=== PATIENT | male | born 1985 | race Caucasian/White ===

== ENCOUNTER 2016-12-25 15:50 | Outpatient (CLI) | payer MEDICAID ==
[2016-12-28 22:57] LABS: AMPHETAMINES NEGATIVE ng/mL (< 500); BARBITURATES NEGATIVE ng/mL (< 300); BENZODIAZEPINES NEGATIVE ng/mL (< 100); CREATININE 213.7 mg/dL (>= 20.0); MARIJUANA METABOLITE POSITIVE ng/mL (< 20); MARIJUANA METABOLITE THC 112 ng/mL (< 5); MEDMATCH AMPHETAMINES CONSISTENT (-); MEDMATCH BARBITURATES CONSISTENT (-); MEDMATCH BENZODIAZEPINES CONSISTENT (-); MEDMATCH COCAINE METAB CONSISTENT (-); MEDMATCH MARIJUANA METAB THC INCONSISTENT (-); MEDMATCH METHADONE METAB CONSISTENT (-); MEDMATCH OPIATES CONSISTENT (-); MEDMATCH OXYCODONE CONSISTENT (-); MEDMATCH PHENCYCLIDINE CONSISTENT (-); METHADONE METABOLITE NEGATIVE ng/mL (< 100); OPIATES NEGATIVE ng/mL (< 100); OXIDANT Negative mcg/mL (< 200); PHENCYCLIDINE NEGATIVE ng/mL (< 25)
== END 2016-12-25 15:51 | disposition home or self-care (01) ==
LOC: LAB.R 15:50
PROVIDERS: ATTEND Nurse Practitioner Family
DX: Z79.899 Other long term (current) drug therapy (principal)
CPT/HCPCS: 80307

== ENCOUNTER 2016-12-28 07:28 | Outpatient (CLI) | payer MEDICAID ==
[2016-12-28 12:11] LABS: BUN - BLOOD UREA NITROGEN 18 mg/dL (6-20); CALCIUM 9.5 mg/dL (8.5-10.3); CARBON DIOXIDE - CO2 24 mmol/L (21-32); CHLORIDE 104 mmol/L (101-111); CREATININE 0.9 mg/dL (0.6-1.2); GFR - MDRD 98 (>89); GLUCOSE 99 mg/dL (70-100); POTASSIUM 3.6 mmol/L (3.5-5.0); SODIUM 139 mmol/L (135-145)
[2016-12-28 12:35] LABS: HEMOGLOBIN A1C 0.65 g/dL
== END 2016-12-28 07:29 | disposition home or self-care (01) ==
LOC: LAB.F 07:28
PROVIDERS: ATTEND Nurse Practitioner Family
DX: R73.09 Other abnormal glucose (principal); E03.9 Hypothyroidism, unspecified
CPT/HCPCS: 36415; 80048; 83036; 84443

== ENCOUNTER 2017-02-16 04:20 | Outpatient (CLI) | payer MEDICAID | END 2017-02-16 04:21 | disposition critical access hospital (66) | LOC: EMS 04:20 | PROVIDERS: ATTEND Surgery | DX: R07.9 Chest pain, unspecified (principal) | CPT/HCPCS: A0425; A0427 ==

== ENCOUNTER 2017-02-16 04:44 | Observation (INO) | payer MEDICAID ==
--- NOTE | 2017-02-16 05:16 | ED Physician Documentation ---
PD HPI CHEST PAIN - Stated complaint Stated Complaint: CHEST PAIN - Chief complaint Chief Complaint: Cardiac - History obtained from History obtained from: Patient, Family, EMS - History of Present Illness Timing - onset: Today Timing - onset during: Rest Timing - duration: Minutes Timing - details: Abrupt onset, Now resolved Quality: Pressure, Sharp Location: Substernal, Right chest Improved by: Nitro Associated symptoms: Diaphoresis, Feeling faint / dizzy. No: Shortness of air, Nausea, Vomiting Similar symptoms before: Has not had sx before Recently seen: Not recently seen - Additional information Additional information: Patient is a 31 year old male with a history of tbi and hypothyroid who is presenting to the emergency department for chest pain. According to patient and family patient woke up from sleep with substernal chest pain with radiation to the right chest. Patient took his aspirin and called ems. When ems arrived they treated the patient with nitro which relieved the pain. patient had a second episode of chest pain and a second round of nitro which helped the pain. when patient arrived to the emergency department he was chest pain free. patient stated that his maternal uncle and grandfather both had heart attacks in their 40s. Review of Systems Constitutional: denies: Fever, Chills Eyes: denies: Decreased vision, Photophobia Ears: denies: Ear pain, Drainage/discharge Nose: denies: Congestion Throat: denies: Dental pain / toothache, Sore throat Cardiac: reports: Chest pain / pressure. denies: Palpitations, Calf pain Respiratory: denies: Dyspnea, Cough, Wheezing GI: reports: Nausea. denies: Vomiting : reports: Reviewed and negative Skin: reports: Other (diaphoresis) Musculoskeletal: denies: Neck pain, Back pain, Extremity pain Neurologic: denies: Generalized weakness, Focal weakness, Numbness Immunocompromised: denies: Immunocompromised PD PAST MEDICAL HISTORY - Present Medications Home Medications: Ambulatory Orders Medication Instructions Recorded Confirmed Dextroamphetamine/Amphetamine 1 tab PO DAILY 02/16/17 02/16/17 [Adderall Xr 30 mg Capsule] Levothyroxine [Synthroid] 50 mcg PO DAILY 02/16/17 02/16/17 hydrOXYzine pamoate [Hydroxyzine 1 tab PO QID PRN 02/16/17 02/16/17 Pamoate] - Allergies Allergies/Adverse Reactions: Allergies Allergy/AdvReac Type Severity Reaction Status Date / Time No Known Drug Allergies Allergy Verified 02/16/17 04:50 PD ED PE NORMAL - Vitals Vital signs reviewed: Yes - General General: Alert and oriented X 3, No acute distress - HEENT HEENT: Atraumatic - Neck Neck: Supple, no meningeal sign, No JVD - Cardiac Cardiac: No murmur - Respiratory Respiratory: No respiratory distress - Abdomen Abdomen: Soft, Non tender, Non distended - Derm Derm: Normal color, No rash - Extremities Extremities: No deformity, Normal ROM s pain, No calf tenderness / cord - Neuro Neuro: Alert and oriented X 3, No motor deficit, No sensory deficit, Normal speech Eye Opening: Spontaneous Motor: Obeys Commands Verbal: Oriented GCS Score: 15 PD ED PE EXPANDED - Cardiac Cardiac: Tachy Results - Vitals Vitals: Vital Signs - 24 hr 02/16/17 02/16/17 02/16/17 04:45 04:53 05:38 Temperature 36.3 C L Heart Rate 100 95 106 H Respiratory 18 18 18 Rate Blood Pressure 120/68 116/69 111/72 O2 Saturation 98 96 97 02/16/17 02/16/17 06:14 06:45 Temperature 36.4 C L Heart Rate 101 H 97 Respiratory 14 18 Rate Blood Pressure 101/74 110/83 H O2 Saturation 97 97 Oxygen O2 Source Room air - EKG (time done) 0454 Rate: Rate (enter#) (95) Watson: Normal Ischemia: ST elevation c/w ischemia, Other (2mm elevation in v2, 1 mm in v3) Compare to prior EKG: Old EKG unavailable Computer interpretation: Agree with computer 0538 Rate: Rate (enter#) (95) Ischemia: ST elevation c/w ischemia Compare to prior EKG: Unchanged from prior EKG - Labs Labs: Laboratory Tests 02/16/17 02/16/17 02/16/17 05:15 05:15 05:15 WBC 9.5 RBC 5.01 Hgb 14.8 Hct 44.5 MCV 88.8 MCH 29.6 MCHC 33.4 RDW 12.8 Plt Count 340 MPV 8.4 Neut # 7.7 H Lymph # 1.1 L Adams # 0.6 Eos # 0.1 Baso # 0.1 Absolute Nucleated RBC 0.00 Nucleated RBC % 0.0 D-Dimer < 200.0 L Sodium 140 Potassium 3.7 Chloride 106 Carbon Dioxide 24 Anion Gap 10.0 BUN 19 Creatinine 0.8 Estimated GFR (MDRD) 112 Glucose 135 H Calcium 9.2 Total Bilirubin 0.5 AST 44 H ALT 89 H Alkaline Phosphatase 62 Troponin I Total Protein 7.7 Albumin 4.3 Globulin 3.4 Albumin/Globulin Ratio 1.3 Lipase 32 TSH 02/16/17 02/16/17 02/16/17 05:15 05:15 06:43 WBC RBC Hgb Hct MCV MCH MCHC RDW Plt Count MPV Neut # Lymph # Adams # Eos # Baso # Absolute Nucleated RBC Nucleated RBC % D-Dimer Sodium Potassium Chloride Carbon Dioxide Anion Gap BUN Creatinine Estimated GFR (MDRD) Glucose Calcium Total Bilirubin AST ALT Alkaline Phosphatase Troponin I < 0.04 < 0.04 Total Protein Albumin Globulin Albumin/Globulin Ratio Lipase TSH 1.50 - Rads (name of study) chest x-ray Radiology: Final report received (no acute abnormality) PD MEDICAL DECISION MAKING - ED course Complexity details: reviewed old records, reviewed results, re-evaluated patient , considered differential, d/w patient, d/w change management consultant ED course: Patient was seen and examined at bedside. Iv access was gained and labs were drawn. ekg was performed and did show elevation in V2 and V3. while there was elevation it did not meet stemi criteria. [facility] emergency room was contacted and the case was discussed with the ER attending who agreed that the ekg was abnormal but it did not meet stemi criteria, especially since patient was chest pain free. Multiple hospitals (7)within a two hour radius were contacted but there were no telemetry beds available. Case was discussed with hospitalist who agreed to serial troponins and observation. second troponin in the emergency department remained negative and patient remained chest pain free. Patient was placed in observation for further care. Departure - Departure Disposition: ED Place in Observation Clinical Impression: Chest pain Condition: Stable
--- NOTE | 2017-02-16 05:22 | XRAY Preliminary Report ---
Exam: XR CHEST 1 VIEW X-RAY IMPRESSION: Negative single view chest. [facility] SITE ID: [id number]
[2017-02-16 05:26] LABS: BASOPHILS # (AUTO) 0.1 10^3/uL (0.0-0.1); BASOPHILS % (AUTO) 0.9 %; EOSINOPHILS # (AUTO) 0.1 10^3/uL (0.0-0.7); EOSINOPHILS % (AUTO) 1.2 %; HGB - HEMOGLOBIN 14.8 g/dL (14.0-18.0); LYMPHOCYTES # (AUTO) 1.1 10^3/uL (1.5-3.5); LYMPHOCYTES % (AUTO) 11.3 %; MEAN CORPUSCULAR HEMOGLOBIN 29.6 pg (27.0-31.0); MEAN CORPUSCULAR HGB CONC 33.4 g/dL (32.0-36.0); MEAN CORPUSCULAR VOLUME 88.8 fL (80.0-94.0); MEAN PLATELET VOLUME 8.4 fL (7.4-11.4); MONOCYTES # (AUTO) 0.6 10^3/uL (0.0-1.0); MONOCYTES % (AUTO) 5.8 %; NEUTROPHILS # (AUTO) 7.7 10^3/uL (1.5-6.6); NEUTROPHILS % (AUTO) 80.8 %; PLT - PLATELET COUNT 340 10^3/uL (130-450); RED BLOOD COUNT 5.01 10^6/uL (4.70-6.10); RED CELL DISTRIBUTION WIDTH 12.8 % (12.0-15.0); WHITE BLOOD COUNT 9.5 x10^3/uL (4.8-10.8)
--- NOTE | 2017-02-16 05:30 | XRAY Report ---
EXAM: CHEST RADIOGRAPHY EXAM DATE: 02/16/2017 05:13 AM. CLINICAL HISTORY: Chest pain. COMPARISON: 04/15/2007 shoulder. TECHNIQUE: 1 view. FINDINGS: Lungs/Pleura: No focal opacities evident. No pleural effusion. No pneumothorax. Mediastinum: Within exam limitations, the cardiomediastinal contour is normal. Other: Probable old left coracoclavicular injury with calcification of the ligament. Similar subtle s houlder x-ray. IMPRESSION: Negative single view chest. [facility] Referring Provider Line: [phone] SITE ID: [id number]
[2017-02-16 05:34] LABS: ALBUMIN 4.3 g/dL (3.2-5.5); ALBUMIN/GLOBULIN RATIO 1.3 (1.0-2.2); BILIRUBIN,TOTAL 0.5 mg/dL (0.2-1.0); CALCIUM 9.2 mg/dL (8.5-10.3); CREATININE 0.8 mg/dL (0.6-1.2); TOTAL PROTEIN 7.7 g/dL (6.7-8.2)
[2017-02-16] MEDS ORDERED: SODIUM CHLORIDE 0.9% 1,000 ML IV ONE (06:57)
[2017-02-16] MEDS ORDERED: SODIUM CHLORIDE FLUSH 0.9% 10 ML SYRINGE IVP PRN (07:47)
[2017-02-16] MEDS ORDERED: ONDANSETRON 4 MG/2 ML VIAL IVP PRN (07:47)
[2017-02-16] MEDS ORDERED: hydrOXYzine PAMOATE 25 MG CAPSULE PO PRN (07:47)
[2017-02-16] MEDS ORDERED: MORPHINE 2 MG/ML SYRINGE IVP PRN (07:47)
[2017-02-16] MEDS ORDERED: NITROGLYCERIN SL 0.4 MG TABLET SL PRN (07:47)
[2017-02-16] MEDS ORDERED: PROCHLORPERAZINE 10 MG/2 ML VIAL IVP PRN (07:47)
[2017-02-16] MEDS ORDERED: oxyCODONE 5 MG TABLET PO PRN ×2 (07:47)
[2017-02-16] MEDS ORDERED: ACETAMINOPHEN 325 MG TABLET PO PRN (07:47)
[2017-02-16] MEDS ORDERED: ZOLPIDEM 5 MG TABLET PO PRN (07:47)
[2017-02-16] MEDS ORDERED: PROMETHAZINE 25 MG/1 ML VIAL IM PRN (07:47)
[2017-02-16] MEDS ORDERED: ASPIRIN CHEW 81 MG TABLET PO ONE (09:00)
[2017-02-16] MEDS ORDERED: FAMOTIDINE 20 MG TABLET PO SCH (09:00)
[2017-02-16] MEDS ORDERED: LEVOTHYROXINE 25 MCG TABLET PO SCH (09:00)
[2017-02-16] MEDS ORDERED: SODIUM CHLORIDE FLUSH 0.9% 10 ML SYRINGE IVP ONE (11:37)
[2017-02-16] MEDS ORDERED: SODIUM CHLORIDE FLUSH 0.9% 10 ML SYRINGE IVP SCH (14:00)
--- NOTE | 2017-02-16 14:56 | Discharge Plan ---
Discharge Plan Disposition: 01 Home, Self Care Condition: Stable Prescriptions: Aspirin 325 mg PO DAILY #30 tablet Diet: Regular Activity Restrictions: Activity as Tolerated Shower Restrictions: No Driving Restrictions: No Weight Bearing: Full Weight Additional Instructions or Follow Up instructions: You presented to the emergency department with chest pain. After checking blood tests and doing echocardiogram it was determined that you were not having an acute heart attack. Your pain is still concerning enough that we would like you to get a stress test with your primary care physician. Please follow-up with your primary care physician as soon as possible to get a stress test. You did have some abnormal findings on her EKG however these were discussed with cardiology at [facility] in [place] and they felt that these were nonspecific changes. He did not have any abnormal findings on your echocardiogram but do need to make lifestyle changes including exercising and improved diet to help reduce risk factors for cardiac problems in the future. No Smoking: If you smoke, Please STOP! Call for help. Follow-up with: Belinda Mirza ARNP [Primary Care Provider] -
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
[2017-02-16 15:42] VITALS: BP 104/57
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
[2017-02-16] MEDS ORDERED: ATORVASTATIN 40 MG TABLET PO SCH (21:00)
[2017-02-17] MEDS ORDERED: ENOXAPARIN 40 MG/0.4 ML SYRINGE SUBQ SCH (09:00)
[2017-02-17] MEDS ORDERED: POLYETHYLENE GLYCOL 3350 17 GM PACKET PO SCH (09:00)
[2017-02-17] MEDS ORDERED: ASPIRIN EC 81 MG TABLET PO SCH (09:00)
== END 2017-02-16 16:15 | disposition home or self-care (01) ==
LOC: EDUNIT# → ED 04:44 → SUPCPDRO 04:44 → OBS 07:47
PROVIDERS: ADMIT Internal Medicine; ATTEND Internal Medicine
DX: R07.89 Other chest pain (principal); E66.9 Obesity, unspecified; E03.9 Hypothyroidism, unspecified; R73.03 Prediabetes; R74.8 Abnormal levels of other serum enzymes; I51.7 Cardiomegaly; F41.9 Anxiety disorder, unspecified; F90.9 Attention-deficit hyperactivity disorder, unspecified type; Z87.820 Personal history of traumatic brain injury; Z82.49 Family history of ischemic heart disease and other diseases of the circulatory system; Z68.37 Body mass index [BMI] 37.0-37.9, adult; Z87.81 Personal history of (healed) traumatic fracture
CPT/HCPCS: 71045; 80053; 83690; 84443; 84484; 85025; 85379; 93005; 93306; 96360; 96361; 99284; 99285; A9270; G0378

== ENCOUNTER 2017-02-21 08:11 | Outpatient (CLI) | payer MEDICAID ==
[2017-02-21 10:30] LABS: CHOL/HDL RATIO 4.4 (<5.0); CHOLESTEROL 158 mg/dL; HDL CHOLESTEROL 36 mg/dL; LDL CHOLESTEROL,CALCULATED 101 mg/dL; LDL/HDL RATIO 2.8 (<3.6); VLDL CHOLESTEROL 21 mg/dL
[2017-02-21 10:40] LABS: THYROID STIMULATING HORMONE 1.54 uIU/mL (0.34-5.60)
[2017-02-21 10:41] LABS: FREE T4 (FREE THYROXINE) 1.24 ng/dL (0.58-1.64)
--- NOTE | 2017-02-21 11:51 | CARDIAC PROCEDURE NOTE ---
DATE OF SERVICE: 02/21/2017 Physician: KIMBERLY Escobedo DATE OF SERVICE: 02/21/2017 PRIMARY CARE PHYSICIAN: KIMBERLY Connors PROCEDURE: Cardiac treadmill stress test. PROCEDURE SYMPTOMS: Chest pain. CARDIAC RISK FACTORS: Include early family history. PREVIOUS CARDIAC PROCEDURES: None. CLINICAL HISTORY: A 31-year-old male without known coronary artery disease. INITIAL RESTING VITAL SIGNS: Blood pressure 106/64, heart rate 93, height 68 inches, weight 248 pounds, BMI 37.7. PROCEDURE AND FINDINGS: Patient identity and date verified, consent signed. The patient performed treadmill exercise using a Laurent protocol, completing 7 minutes, 23 seconds and completing an estimated workload of 10.1 metabolic equivalents. Maximal blood pressure was 142/86 with a heart rate of 185 beats per minute or 98% of maximum predicted heart rate for age. The blood pressure response to exercise was within normal limits. The patient stopped because his legs were burning and he was short of air. The resting ECG demonstrated normal sinus rhythm, with inverted T waves in the inferior leads and ST abnormality that was elevated with no defined J point in V2. There was no ST elevation in V3 as there was in his ER ECG. Maximum ST segment depression was 0. There was no ectopy. He had a very slow decrease in heart rate and respiratory rate in recovery. At 10 minutes, his heart rate was still 120. FINAL IMPRESSIONS 1. Nondiagnostic stress electrocardiogram for ischemia by electrocardiographic criteria. 2. Negative stress test clinically for angina. 3. Slow heart rate recovery over 10 minutes. TD: 02/21/2017 12:49
== END 2017-02-21 08:12 | disposition home or self-care (01) ==
LOC: LAB.F 08:11
PROVIDERS: ATTEND Nurse Practitioner Family
DX: R07.89 Other chest pain (principal); Z82.49 Family history of ischemic heart disease and other diseases of the circulatory system; Z13.220 Encounter for screening for lipoid disorders; E03.9 Hypothyroidism, unspecified
CPT/HCPCS: 36415; 80061; 84439; 84443

== ENCOUNTER 2017-02-21 09:46 | Outpatient (CLI) | payer MEDICAID ==
[2017-02-21 17:12] VITALS: BP 106/64
== END 2017-02-21 09:47 | disposition home or self-care (01) ==
LOC: DI 09:46
PROVIDERS: ATTEND Nurse Practitioner Family
DX: R07.89 Other chest pain (principal); Z82.49 Family history of ischemic heart disease and other diseases of the circulatory system; Z13.220 Encounter for screening for lipoid disorders; E03.9 Hypothyroidism, unspecified
CPT/HCPCS: 36415; 80061; 84439; 84443; 93017

== ENCOUNTER 2017-06-04 14:13 | Outpatient (CLI) | payer MEDICAID | END 2017-06-04 14:14 | disposition home or self-care (01) | LOC: SC 14:13 | PROVIDERS: ATTEND Internal Medicine Pulmonary Disease | DX: G47.10 Hypersomnia, unspecified (principal); G47.20 Circadian rhythm sleep disorder, unspecified type | CPT/HCPCS: 99203; 99212 ==

== ENCOUNTER 2017-07-17 00:15 | Outpatient (CLI) | payer MEDICAID | END 2017-07-17 00:16 | disposition critical access hospital (66) | LOC: EMS 00:15 | PROVIDERS: ATTEND Surgery | DX: R07.9 Chest pain, unspecified (principal); R06.02 Shortness of breath | CPT/HCPCS: A0425; A0427 ==

== ENCOUNTER 2017-07-17 00:42 | Emergency (ER) | payer MEDICAID ==
[2017-07-17] MEDS ORDERED: ONDANSETRON ODT 4 MG TABLET TL STA (00:59)
[2017-07-17] MEDS ORDERED: FAMOTIDINE 20 MG TABLET PO STA (00:59)
[2017-07-17] MEDS ORDERED: LIDOCAINE VISCOUS 2% 15 ML UDC MM STA (00:59)
[2017-07-17] MEDS ORDERED: MAG HYDROX/AL HYDROX/SIMETH 30 ML UDC PO STA (00:59)
[2017-07-17 01:11] LABS: BASOPHILS # (AUTO) 0.1 10^3/uL (0.0-0.1); BASOPHILS % (AUTO) 0.9 %; EOSINOPHILS # (AUTO) 0.2 10^3/uL (0.0-0.7); EOSINOPHILS % (AUTO) 2.1 %; LYMPHOCYTES # (AUTO) 2.4 10^3/uL (1.5-3.5); LYMPHOCYTES % (AUTO) 21.4 %; MEAN CORPUSCULAR HEMOGLOBIN 30.3 pg (27.0-31.0); MEAN CORPUSCULAR VOLUME 88.9 fL (80.0-94.0); MEAN PLATELET VOLUME 8.5 fL (7.4-11.4); MONOCYTES # (AUTO) 0.6 10^3/uL (0.0-1.0); MONOCYTES % (AUTO) 5.1 %; NEUTROPHILS # (AUTO) 7.8 10^3/uL (1.5-6.6); NEUTROPHILS % (AUTO) 70.5 %; PLT - PLATELET COUNT 329 10^3/uL (130-450); RED BLOOD COUNT 4.64 10^6/uL (4.70-6.10); RED CELL DISTRIBUTION WIDTH 12.9 % (12.0-15.0)
[2017-07-17 01:26] LABS: ALBUMIN 3.9 g/dL (3.2-5.5); ALBUMIN/GLOBULIN RATIO 1.1 (1.0-2.2); BILIRUBIN,TOTAL 0.8 mg/dL (0.2-1.0); CALCIUM 9.3 mg/dL (8.5-10.3); CREATININE 0.9 mg/dL (0.6-1.2); TOTAL PROTEIN 7.3 g/dL (6.7-8.2)
--- NOTE | 2017-07-17 01:30 | XRAY Report ---
EXAM: CHEST RADIOGRAPHY EXAM DATE: 07/17/2017 01:18 AM. CLINICAL HISTORY: Chest pain. COMPARISON: 02/16/2017. TECHNIQUE: 2 views. FINDINGS: Lungs/Pleura: No focal opacities evident. No pleural effusion. No pneumothorax. Normal volumes. Mediastinum: Heart and mediastinal contours are unremarkable. Other: None. IMPRESSION: Normal 2-view chest radiography. [facility] Referring Provider Line: [phone] SITE ID: [id number]
--- NOTE | 2017-07-17 01:30 | XRAY Preliminary Report ---
Exam: XR CHEST 2 VIEW X-RAY IMPRESSION: Normal 2-view chest radiography. [facility] SITE ID: [id number]
--- NOTE | 2017-07-17 01:35 | ED Physician Documentation ---
PD HPI CHEST PAIN - Stated complaint Stated Complaint: CHEST PAIN - Chief complaint Chief Complaint: Cardiac - History obtained from History obtained from: Patient, EMS - History of Present Illness Timing - onset: Today Timing - onset during: Rest Timing - details: Abrupt onset, Still present Quality: Pressure, Aching, Throbbing Location: Right chest Associated symptoms: Nausea. No: Shortness of air, Diaphoresis, Vomiting, Feeling faint / dizzy Similar symptoms before: Work up / diagnostics Recently seen: Not recently seen - Additional information Additional information: Patient is a 31 year old male presenting to the emergency department for chest pain. According to patient, family and ems, patient complained of severe epigastric pain that radiated to his back. Patient states that he did have chicken wings for lunch and muffin tops for dinner. Patient reports that he was diagnosed with angina but he had a negative stress test and echo in february. Review of Systems Constitutional: denies: Fever, Chills Cardiac: reports: Chest pain / pressure. denies: Palpitations Respiratory: denies: Dyspnea, Cough GI: reports: Abdominal Pain, Nausea. denies: Vomiting, Constipation, Diarrhea Skin: denies: Rash, Lesions PD PAST MEDICAL HISTORY - Past Medical History Past Medical History: Yes Respiratory: Asthma Endocrine/Autoimmune: HyPOthyroidism Other Past Medical History: Dx w/ Angina the last time he was here. - Past Surgical History Past Surgical History: Yes Cardiovascular: Other HEENT: Other - Present Medications Home Medications: Ambulatory Orders Medication Instructions Recorded Confirmed Aspirin 325 mg PO DAILY #30 tablet 02/16/17 Dextroamphetamine/Amphetamine 1 cap PO DAILY 02/16/17 02/16/17 [Adderall Xr 30 mg Capsule] Levothyroxine [Synthroid] 50 mcg PO DAILY 02/16/17 02/16/17 hydrOXYzine pamoate [Hydroxyzine 25 - 50 mg PO Q4H PRN 02/16/17 02/16/17 Pamoate] Doxycycline Monohydrate 1 cap PO BID 07/17/17 07/17/17 Ondansetron Odt [Zofran] 4 mg TL Q6H PRN #14 tablet 07/17/17 - Allergies Allergies/Adverse Reactions: Allergies Allergy/AdvReac Type Severity Reaction Status Date / Time No Known Drug Allergies Allergy Verified 07/17/17 00:52 - Social History Does the pt smoke?: No Smoking Status: Never smoker Does the pt drink ETOH?: Yes Does the pt have substance abuse?: No - POLST Patient has POLST: No POLST Status: Full Code PD ED PE NORMAL - Vitals Vital signs reviewed: Yes - General General: Alert and oriented X 3 - HEENT HEENT: Atraumatic - Cardiac Cardiac: RRR - Respiratory Respiratory: No respiratory distress - Derm Derm: Normal color - Extremities Extremities: No deformity - Neuro Neuro: Alert and oriented X 3, No motor deficit, Normal speech Eye Opening: Spontaneous Motor: Obeys Commands Verbal: Oriented GCS Score: 15 PD ED PE EXPANDED - General General: Alert, In Pain - HEENT HEENT: Dry mucous membranes - Abdomen Abdomen: Tender to palpation, Epigastric. No: Rebound, Guarding Results - Vitals Vitals: Vital Signs - 24 hr 07/17/17 07/17/17 07/17/17 00:44 00:50 01:19 Temperature 36.3 C L Heart Rate 81 81 Respiratory 21 23 Rate Blood Pressure 99/67 121/78 Blood Pressure 99/67 [Left] Blood Pressure 116/80 [Right] O2 Saturation 98 96 07/17/17 01:55 Temperature Heart Rate 79 Respiratory 16 Rate Blood Pressure 119/78 Blood Pressure [Left] Blood Pressure [Right] O2 Saturation 100 Oxygen O2 Source Room air - EKG (time done) 0047 Rate: Rate (enter#) (73) Rhythm: NSR [place]: Normal Intervals: Normal [place] Ischemia: ST elevation c/w repol Compare to prior EKG: Unchanged from prior EKG - Labs Labs: Laboratory Tests 07/17/17 07/17/17 07/17/17 01:00 01:00 01:00 WBC 11.0 H RBC 4.64 L Hgb 14.0 Hct 41.3 L MCV 88.9 MCH 30.3 MCHC 34.0 RDW 12.9 Plt Count 329 MPV 8.5 Neut # (Auto) 7.8 H Lymph # (Auto) 2.4 [place] # (Auto) 0.6 Eos # (Auto) 0.2 Baso # (Auto) 0.1 Absolute Nucleated RBC 0.00 Nucleated RBC % 0.0 Sodium 141 Potassium 4.1 Chloride 106 Carbon Dioxide 26 Anion Gap 9.0 BUN 20 Creatinine 0.9 Estimated GFR (MDRD) 98 Glucose 157 H Calcium 9.3 Total Bilirubin 0.8 AST 72 H ALT 85 H Alkaline Phosphatase 63 Troponin I < 0.04 Total Protein 7.3 Albumin 3.9 Globulin 3.4 Albumin/Globulin Ratio 1.1 Lipase 37 - Rads (name of study) ct abd pelvis Radiology: Final report received (normal) PD MEDICAL DECISION MAKING - ED course Complexity details: reviewed old records, reviewed results, re-evaluated patient , considered differential, d/w patient ED course: Patient was seen and examined at bedside. ekg was performed and was within normal limits. patient was treated with pepcid, maalox and viscous lidocaine with little relief. Patient was sent for imaging. When patient returned from imaging the results were reviewed. there were no acute abnormalities. Patient and mother were made aware of the findings. Patient had a heart score of 1, and a negative echo and stress test 5 months prior. patient required no further work up and was stable for discharge with outpatient follow up. Departure - Departure Disposition: Home, Self Care Clinical Impression: Elevated LFTs, Abdominal pain Condition: Good Instructions: ED Abdominal Pain Gallstone Poss Follow-Up: Ricky Marie MD [Provider Admit Priv/Credential] - Tomorrow Prescriptions: Ondansetron Odt [Zofran] 4 mg TL Q6H PRN #14 tablet PRN Reason: Nausea / Vomiting Comments: Your diagnostics today were within normal limits. there were no acute abnormalities. There is a good possibility that it is your gallbladder. The first step is to change your diet. You will need to cut out all fried foods, fatty foods, fast foods etc. You can increase the amounts of vegetables and lean protein. You should follow up with Dr. Best's office for further care if your symptoms persist. you may return to the emergency department at any time for new, worsening or uncontrollable symptoms.
[2017-07-17] MEDS ORDERED: IOPAMIDOL-300 100 ML VIAL ONE (01:55)
[2017-07-17] MEDS ORDERED: IOPAMIDOL-300 100 ML VIAL IVP ONE (02:11)
--- NOTE | 2017-07-17 02:30 | CT Preliminary Report ---
Exam: CT ABDOMEN/PELVIS W/ IMPRESSION: Normal abdomen and pelvis CT. [facility] SITE ID: [id number]
--- NOTE | 2017-07-17 02:30 | CT Report ---
EXAM: CT ABDOMEN AND PELVIS EXAM DATE: 07/17/2017 02:14 AM. CLINICAL HISTORY: Abd pain, transaminitis. COMPARISONS: None. TECHNIQUE: Routine helical CT imaging was performed through the abdomen and pelvis. IV contrast: 100 mL Isovue 300. Enteric contrast: No. Reconstructions: Coronal and sagittal. In accordance with CT protocol optimization, one or more of the following dose reduction techniques w ere utilized for this exam: automated exposure control, adjustment of mA and/or KV based on patient s ize, or use of iterative reconstructive technique. FINDINGS: Lung Bases: Unremarkable. Liver: Normal. No masses. Gallbladder/Bile Ducts: Unremarkable. Spleen: Normal. Pancreas: Normal. Adrenal Glands: Normal. Kidneys: Normal. No masses or hydronephrosis. Peritoneal Cavity/Bowel: Normal. No free fluid, free air or adenopathy. No masses or acute inflammato ry process. The appendix is well visualized and normal. Pelvic Organs: Normal. The bladder and visualized pelvic organs are within normal limits. Vasculature: No aneurysms or other significant abnormality. Bones: No significant abnormality. Other: None. IMPRESSION: Normal abdomen and pelvis CT. [facility] Referring Provider Line: [phone] SITE ID: [id number]
[2017-07-17 03:00] VITALS: BP 117/83
== END 2017-07-17 03:00 | disposition home or self-care (01) ==
LOC: EDUNIT# → SUPCPDRO 00:42 → ED 00:42
DX: R94.5 Abnormal results of liver function studies (principal); R10.13 Epigastric pain; E03.9 Hypothyroidism, unspecified
CPT/HCPCS: 36415; 71046; 74177; 80053; 83690; 84484; 85025; 93005; 99283; 99284; A9270; Q0162; Q9967; 85379

== ENCOUNTER 2017-07-31 18:58 | Outpatient (CLI) | payer MEDICAID | END 2017-07-31 18:59 | disposition home or self-care (01) | LOC: SC 18:58 | PROVIDERS: ATTEND Internal Medicine Pulmonary Disease | DX: G47.10 Hypersomnia, unspecified (principal) | CPT/HCPCS: 95810 ==

== ENCOUNTER 2017-09-09 14:51 | Outpatient (CLI) | payer MEDICAID | END 2017-09-09 14:52 | disposition home or self-care (01) | LOC: SC 14:51 | PROVIDERS: ATTEND Internal Medicine Pulmonary Disease | DX: G47.20 Circadian rhythm sleep disorder, unspecified type (principal) | CPT/HCPCS: 99212; 99213 ==

== ENCOUNTER 2017-12-16 14:45 | Outpatient (CLI) | payer MEDICAID ==
[2017-12-16 19:26] LABS: MUDS CUTOFF CONCENTRATIONS CUTOFF CONC BELOW:
[2017-12-16 19:43] LABS: AMPHETAMINE SCREEN,URINE POSITIVE (NEGATIVE); BENZODIAZEPINES SCREEN, URINE NEGATIVE (NEGATIVE); COCAINE SCREEN URINE NEGATIVE (NEGATIVE); METHADONE SCREEN, URINE NEGATIVE (NEGATIVE); METHAMPHETAMINES SCREEN, URINE NEGATIVE (NEGATIVE); OPIATE SCREEN, URINE NEGATIVE (NEGATIVE); OXYCODONE SCREEN, URINE NEGATIVE (NEGATIVE); PROPOXYPHENE SCREEN, URINE NEGATIVE (NEGATIVE); TRICYCLIC ANTIDEPRESSANT,URINE NEGATIVE (NEGATIVE)
== END 2017-12-16 23:59 ==
LOC: LAB.R 14:45
PROVIDERS: ATTEND Nurse Practitioner Family
DX: F90.0 Attention-deficit hyperactivity disorder, predominantly inattentive type (principal)
CPT/HCPCS: 80306

== ENCOUNTER 2018-01-24 16:11 | Outpatient (CLI) | payer MEDICAID ==
--- NOTE | 2018-01-25 17:50 | Ultrasound Report ---
Reason: BILIARY COLIC Procedure Date: 01/24/2018 Accession Number: [id number] / [id number] Procedure: US - Abdomen Limited CPT Code: FULL RESULT: EXAM: ABDOMEN ULTRASOUND LIMITED, RUQ EXAM DATE: 01/24/2018 05:31 PM. CLINICAL HISTORY: BILIARY COLIC. COMPARISON: ABDOMEN/PELVIS W/ 07/17/2017 2:02 AM. TECHNIQUE: Real-time scanning was performed with static images obtained. FINDINGS: Liver: Echotexture increased without suspicious abnormality seen. Main portal vein flow: Hepatopetal. Gallbladder: Multiple gallstones without wall thickening or reported tenderness. Biliary System: CBD measures 3 mm. No intrahepatic or extrahepatic ductal dilatation. Other: Visualized portions of the right kidney are unremarkable with incidental small right renal cyst again noted. IMPRESSION: 1. Cholelithiasis without definite acute cholecystitis. 2. Fatty liver [facility]
== END 2018-01-24 16:12 | disposition home or self-care (01) ==
LOC: DI 16:11
PROVIDERS: ATTEND Nurse Practitioner Family
DX: K80.20 Calculus of gallbladder without cholecystitis without obstruction (principal); K76.0 Fatty (change of) liver, not elsewhere classified
CPT/HCPCS: 76705

== ENCOUNTER 2018-02-28 08:17 | Outpatient (CLI) | payer MEDICAID ==
[2018-02-28 12:15] LABS: CORTISOL 8.6 ug/dL; FREE T4 (FREE THYROXINE) 0.97 ng/dL (0.58-1.64); PROLACTIN 6.45 ng/mL
[2018-02-28 12:16] LABS: FREE T3 2.93 pg/mL (2.5-3.9); PSA TOTAL 0.59 ng/mL (0.000-2.000)
== END 2018-02-28 08:18 | disposition home or self-care (01) ==
LOC: LAB.F 08:17
PROVIDERS: ATTEND Internal Medicine
DX: E29.1 Testicular hypofunction (principal); E03.9 Hypothyroidism, unspecified
CPT/HCPCS: 36415; 82533; 84146; 84153; 84439; 84443; 84481

== ENCOUNTER 2018-07-10 12:33 | Emergency (ER) | payer MEDICAID ==
--- NOTE | 2018-07-10 13:22 | ED Physician Documentation ---
History of Present Illness - Stated complaint Stated Complaint: SIDE PX - Chief complaint Chief Complaint: General - History obtained from History obtained from: Patient, Family - History of Present Illness Timing: Today Pain level max: >10 Pain level now: >10 - Additonal information Additional information: This is a 32-year-old presents with his mother complaints that he is having pain in his side but also his lower abdomen and his lower back bilaterally. The pain started around 330 this morning and is gradually increased to where it is now a 9 out of 10. Feels like he cannot urinate. He has not seen any blood in the urine. Is been nauseous but had no vomiting or diarrhea. The patient has felt very dizzy he thinks is because he is hyperventilating in an attempt to control his pain. He took 700 mg of aspirin, half of a hydrocodone tablet and a chocolate marijuana bar prior to arrival has not had any relief of the pain. He is never had pain like this before. Patient has been diagnosed with gallstones but denies any abdominal surgeries and still has his gallbladder. There is a family history of gout but no family history of kidney stone. He has not run a fever. Review of Systems Unable to obtain: Other (Acute pain) Constitutional: denies: Fever Respiratory: denies: Dyspnea, Cough GI: reports: Abdominal Pain, Nausea. denies: Vomiting, Diarrhea : reports: Unable to Void. denies: Dysuria, Testicular pain Neurologic: reports: Other (Dizziness) PD PAST MEDICAL HISTORY - Past Medical History Past Medical History: Yes Respiratory: Asthma Endocrine/Autoimmune: HyPOthyroidism GI: Other (Gallstones) - Past Surgical History Past Surgical History: Yes Cardiovascular: Other HEENT: Other - Present Medications Home Medications: Ambulatory Orders Medication Instructions Recorded Confirmed Dextroamphetamine/Amphetamine 1 cap PO DAILY 02/16/17 07/10/18 [Adderall Xr 30 mg Capsule] Levothyroxine [Synthroid] 50 mcg PO DAILY 02/16/17 07/10/18 Doxycycline Monohydrate 1 cap PO BID 07/17/17 07/10/18 - Allergies Allergies/Adverse Reactions: Allergies Allergy/AdvReac Type Severity Reaction Status Date / Time No Known Drug Allergies Allergy Verified 07/10/18 12:52 - Social History Does the pt smoke?: No Smoking Status: Never smoker Does the pt drink ETOH?: Yes Does the pt have substance abuse?: No - POLST Patient has POLST: No POLST Status: Full Code PD ED PE NORMAL - Vitals Vital signs reviewed: Yes - General General: Other (Patient was leaning over the toilet in an attempt to control his pain when I came in the exam room. Is very pale and obviously in discomfort. He is diaphoretic.) - HEENT HEENT: Atraumatic, PERRL, Other (No scleral icterus) - Cardiac Cardiac: No murmur, Other (Tachycardic) - Respiratory Respiratory: No respiratory distress, Clear bilaterally - Abdomen Abdomen: Other (Hypoactive bowel tones. He is diffusely tender with guarding.) - Derm Derm: Other (Diaphoretic;Pale) - Extremities Extremities: No edema - Neuro Neuro: Alert and oriented X 3 - Psych Psych: Normal mood, Normal affect Results - Vitals Vitals: Vital Signs - 24 hr 07/10/18 07/10/18 07/10/18 12:47 15:02 16:31 Temperature 36.3 C L 36.7 C 36.7 C Heart Rate 108 H 97 109 H Respiratory 30 H 16 16 Rate Blood Pressure 122/80 135/78 H 119/84 H O2 Saturation 99 100 98 07/10/18 07/10/18 07/10/18 18:37 19:27 21:09 Temperature 36.5 C 36.6 C Heart Rate 90 101 H 102 H Respiratory 16 18 15 Rate Blood Pressure 146/96 H 143/92 H 133/86 H O2 Saturation 99 99 95 Oxygen O2 Source Room air - Labs Labs: Laboratory Tests 07/10/18 07/10/18 07/10/18 13:05 13:05 13:54 WBC 13.1 H RBC 4.94 Hgb 14.6 Hct 43.9 MCV 88.8 MCH 29.5 MCHC 33.2 RDW 13.1 Plt Count 387 MPV 8.1 Neut # (Auto) 11.8 H Lymph # (Auto) 0.9 L [place] # (Auto) 0.3 Eos # (Auto) 0.0 Baso # (Auto) 0.0 Absolute Nucleated RBC 0.00 Nucleated RBC % 0.0 Sodium 139 Potassium 3.6 Chloride 100 L Carbon Dioxide 20 L Anion Gap 19.0 H BUN 25 H Creatinine 1.2 Estimated GFR (MDRD) 70 L Glucose 151 H Calcium 9.8 Total Bilirubin 0.7 AST 38 ALT 32 Alkaline Phosphatase 57 Total Protein 8.3 H Albumin 4.9 Globulin 3.4 Albumin/Globulin Ratio 1.4 Lipase 33 Urine Color YELLOW Urine Clarity CLEAR Urine pH 6.0 Ur Specific [place] 1.025 Urine Protein TRACE Urine Glucose (UA) NEGATIVE Urine Ketones >=80 H Urine Occult Blood LARGE H Urine Nitrite NEGATIVE Urine Bilirubin NEGATIVE Urine Urobilinogen 0.2 (NORMAL) Ur Leukocyte Esterase NEGATIVE Urine RBC 11-25 H Urine WBC 0-3 Ur Squamous Epith Cells RARE Squamous Urine Bacteria Rare Urine Mucus Few Strands Ur Microscopic Review INDICATED Urine Culture Comments NOT INDICATED Urine Opiates Screen POSITIVE H Ur Oxycodone Screen NEGATIVE Urine Methadone Screen NEGATIVE Ur Propoxyphene Screen NEGATIVE Ur Barbiturates Screen NEGATIVE Ur Tricyclics Screen NEGATIVE Ur Phencyclidine Scrn NEGATIVE Ur Amphetamine Screen POSITIVE H U Methamphetamines Scrn NEGATIVE U Benzodiazepines Scrn NEGATIVE Urine Cocaine Screen NEGATIVE U Cannabinoids Screen POSITIVE H PD MEDICAL DECISION MAKING - ED course Complexity details: re-evaluated patient, d/w patient, d/w family ED course: Patient initially received a liter of IV fluids and Toradol 30 mg IV. He continued to have intense pain and was then given repeated doses of Dilaudid up to 3 mg as well as Zofran a total of 8 mg. His urine had blood in it and a CT confirmed the Presence of a small stone at the UVJ. Patient was given Flomax and during his emergency department stay he had relief of his pain and passed what looked like a little bit of grit into the urine strainer. The abdomen was soft at that time and he was ready to go home. He is encouraged to continue using the urine strainer and follow-up with his primary care provider for further management next week. He states understanding. Departure - Departure Disposition: 01 Home, Self Care Clinical Impression: Renal colic on right side Condition: Good Instructions: ED Stone Renal W Colic Follow-Up: Belinda Mirza ARNP [Primary Care Provider] - Comments: Continue to strain your urine and save any larger stone that is passed. Drink lots of water I would recommend at least eight 10 ounce glasses of water a day.May use ibuprofen [id number] for any residual discomfort. Follow-up with your doctor next week for recheck and to discuss whether any further management of your stones is indicated. Return if you have increasing pain that is not controlled with ibuprofen, you are vomiting, unable to urinate, develop a fever or other problems arise.
[2018-07-10] MEDS ORDERED: ONDANSETRON 4 MG/2 ML VIAL IVP STA ×2 (13:44→20:30)
[2018-07-10] MEDS ORDERED: SODIUM CHLORIDE 0.9% 1,000 ML IV ONE ×2 (13:44→18:33)
[2018-07-10] MEDS ORDERED: KETOROLAC 30 MG/ML VIAL IVP STA (13:44)
[2018-07-10 13:52] LABS: BASOPHILS % (AUTO) 0.3 %; HGB - HEMOGLOBIN 14.6 g/dL (14.0-18.0); LYMPHOCYTES # (AUTO) 0.9 10^3/uL (1.5-3.5); LYMPHOCYTES % (AUTO) 6.7 %; MEAN CORPUSCULAR HEMOGLOBIN 29.5 pg (27.0-31.0); MEAN CORPUSCULAR HGB CONC 33.2 g/dL (32.0-36.0); MEAN CORPUSCULAR VOLUME 88.8 fL (80.0-94.0); MEAN PLATELET VOLUME 8.1 fL (7.4-11.4); MONOCYTES # (AUTO) 0.3 10^3/uL (0.0-1.0); MONOCYTES % (AUTO) 2.5 %; NEUTROPHILS # (AUTO) 11.8 10^3/uL (1.5-6.6); NEUTROPHILS % (AUTO) 90.5 %; PLT - PLATELET COUNT 387 10^3/uL (130-450); RED BLOOD COUNT 4.94 10^6/uL (4.70-6.10); RED CELL DISTRIBUTION WIDTH 13.1 % (12.0-15.0); WHITE BLOOD COUNT 13.1 x10^3/uL (4.8-10.8)
[2018-07-10 13:59] LABS: MUDS CUTOFF CONCENTRATIONS CUTOFF CONC BELOW:
[2018-07-10 14:01] LABS: ALBUMIN 4.9 g/dL (3.2-5.5); ALBUMIN/GLOBULIN RATIO 1.4 (1.0-2.2); BILIRUBIN,TOTAL 0.7 mg/dL (0.2-1.0); CALCIUM 9.8 mg/dL (8.5-10.3); CREATININE 1.2 mg/dL (0.6-1.2); TOTAL PROTEIN 8.3 g/dL (6.7-8.2)
[2018-07-10 14:04] LABS: BILIRUBIN,URINE NEGATIVE (NEGATIVE); GLUCOSE, URINE (UA) NEGATIVE (NEGATIVE); KETONES,URINE (UA) >=80 mg/dL (NEGATIVE); LEUKOCYTE ESTERASE, URINE NEGATIVE (NEGATIVE); NITRITE,URINE NEGATIVE (NEGATIVE); OCCULT BLOOD,URINE LARGE (NEGATIVE); PROTEIN,URINE TRACE mg/dL (NEGATIVE); UROBILINOGEN,URINE 0.2 (NORMAL) E.U./dL (NORMAL)
[2018-07-10 14:16] LABS: CLARITY,URINE CLEAR (CLEAR)
[2018-07-10 14:17] LABS: BACTERIA,URINE Rare /HPF (None Seen); MUCUS,URINE Few Strands; SQUAMOUS EPITHELIAL CELL,UR RARE Squamous (<= Few)
[2018-07-10 14:18] LABS: AMPHETAMINE SCREEN,URINE POSITIVE (NEGATIVE); BENZODIAZEPINES SCREEN, URINE NEGATIVE (NEGATIVE); COCAINE SCREEN URINE NEGATIVE (NEGATIVE); METHADONE SCREEN, URINE NEGATIVE (NEGATIVE); METHAMPHETAMINES SCREEN, URINE NEGATIVE (NEGATIVE); OPIATE SCREEN, URINE POSITIVE (NEGATIVE); OXYCODONE SCREEN, URINE NEGATIVE (NEGATIVE); PROPOXYPHENE SCREEN, URINE NEGATIVE (NEGATIVE); TRICYCLIC ANTIDEPRESSANT,URINE NEGATIVE (NEGATIVE)
[2018-07-10] MEDS ORDERED: HYDROmorphone 1 MG/ML CARPUJECT IVP STA ×3 (15:45→19:42)
--- NOTE | 2018-07-10 17:27 | CT Report ---
Reason: flank pain, hemautria Procedure Date: 07/10/2018 Accession Number: [id number] / [id number] Procedure: CT - Abdomen/Pelvis WO CPT Code: FULL RESULT: EXAM: CT ABDOMEN AND PELVIS (CT KUB) EXAM DATE: 07/10/2018 03:40 PM. CLINICAL HISTORY: Flank pain, hematuria. COMPARISONS: ABDOMEN/PELVIS W/ 07/17/2017 2:02 AM. TECHNIQUE: Routine axial helical CT imaging was performed through the abdomen and pelvis without IV contrast. Reconstructions: Coronal and sagittal. In accordance with CT protocol optimization, one or more of the following dose reduction techniques were utilized for this exam: automated exposure control, adjustment of mA and/or KV based on patient size, or use of iterative reconstructive technique. FINDINGS: Mildly limited evaluation of solid abdominal organs without intravenous contrast. Lung Bases: Unremarkable. Right Kidney/Ureter: There is mild hydronephrosis with minimal perinephric inflammation. There is an obstructing stone at or passing the right ureterovesical junction that measures 3 mm. There are 2 additional punctate 2 mm nonobstructing right renal stones. Left Kidney/Ureter: No stone, hydronephrosis, or hydroureter. No perinephric fat stranding. Other Solid Organs: Noncontrast images of the solid organs are grossly unremarkable. Gallbladder/Bile Ducts: Unremarkable. Peritoneal Cavity: No free fluid, free air or jocelyn adenopathy. No evidence of a bowel obstruction. Pelvic Organs: No bladder wall thickening. Prostate gland is unremarkable. Vasculature: Unremarkable. Other: None. IMPRESSION: Mildly obstructing 3 mm stone at or passing the right ureterovesical junction. Additional 2 mm nonobstructing right renal stones. RADIA
[2018-07-10] MEDS ORDERED: TAMSULOSIN 0.4 MG CAPSULE PO STA (18:33)
[2018-07-10] MEDS ORDERED: ONDANSETRON 4 MG/2 ML VIAL ONE (20:34)
[2018-07-10 21:10] VITALS: BP 133/86
== END 2018-07-10 22:07 | disposition home or self-care (01) ==
LOC: ED 12:33
DX: N13.2 Hydronephrosis with renal and ureteral calculous obstruction (principal)
CPT/HCPCS: 36415; 74176; 80053; 80306; 81001; 83690; 85025; 96361; 96374; 96375; 96376; 99284; A9270; J1170; 81003; 87086

== ENCOUNTER 2018-07-18 14:01 | Outpatient (CLI) | payer MEDICAID ==
[2018-07-18 18:23] LABS: CALCIUM 9.3 mg/dL (8.5-10.3); CREATININE 0.9 mg/dL (0.6-1.2)
== END 2018-07-18 14:02 | disposition home or self-care (01) ==
LOC: LAB.F 14:01
PROVIDERS: ATTEND Nurse Practitioner
DX: Z09 Encounter for follow-up examination after completed treatment for conditions other than malignant neoplasm (principal); Z87.442 Personal history of urinary calculi
CPT/HCPCS: 36415; 80048

== ENCOUNTER 2019-10-25 04:29 | Emergency (ER) | payer MEDICAID ==
--- NOTE | 2019-10-25 04:35 | ED Physician Documentation ---
History of Present Illness - Stated complaint Stated Complaint: AB PX - History obtained from History obtained from: Patient - Additonal information Additional information: The patient is a 34-year-old male who presents with chief complaint of right upper quadrant pain with nausea and vomiting reports he has a history of gallstones denies any dark urine or alex colored stools or fevers denies flank pain or syncope. Review of Systems Constitutional: reports: Reviewed and negative Eyes: reports: Reviewed and negative Ears: reports: Reviewed and negative Nose: reports: Reviewed and negative Throat: reports: Reviewed and negative Cardiac: reports: Reviewed and negative Respiratory: reports: Reviewed and negative GI: reports: Abdominal Pain, Nausea, Vomiting : reports: Reviewed and negative Skin: reports: Reviewed and negative Musculoskeletal: reports: Reviewed and negative Neurologic: reports: Reviewed and negative Psychiatric: reports: Reviewed and negative Endocrine: reports: Reviewed and negative Immunocompromised: reports: Reviewed and negative PD PAST MEDICAL HISTORY - Past Medical History Respiratory: Asthma Endocrine/Autoimmune: HyPOthyroidism GI: Other (Gallstones) - Past Surgical History Past Surgical History: Yes Cardiovascular: Other HEENT: Other - Present Medications Home Medications: Ambulatory Orders Medication Instructions Recorded Confirmed Dextroamphetamine/Amphetamine 1 cap PO DAILY 02/16/17 07/10/18 [Adderall Xr 30 mg Capsule] Levothyroxine [Synthroid] 50 mcg PO DAILY 02/16/17 07/10/18 Doxycycline Monohydrate 1 cap PO BID 07/17/17 07/10/18 - Allergies Allergies/Adverse Reactions: Allergies Allergy/AdvReac Type Severity Reaction Status Date / Time No Known Drug Allergies Allergy Verified 10/25/19 04:38 - Social History Does the pt smoke?: No Smoking Status: Never smoker Does the pt drink ETOH?: Yes Does the pt have substance abuse?: No - POLST Patient has POLST: No POLST Status: Full Code PD ED PE NORMAL - Vitals Vital signs reviewed: Yes - General General: Alert and oriented X 3, No acute distress, Well developed/nourished - HEENT HEENT: Atraumatic, PERRL, Moist mucous membranes - Neck Neck: Supple, no meningeal sign - Cardiac Cardiac: RRR, No murmur, No gallop, No rub, Strong equal pulses - Respiratory Respiratory: Clear bilaterally - Abdomen Abdomen: Normal bowel sounds, Other (The abdomen is tender in the right upper quadrant he has a positive Ames sign. Mass the patient is voluntarily guar ding no skin discoloration diminished bowel sounds) - Male Male : Pt declined - Rectal Rectal: Pt declined - Back Back: No CVA TTP, No spinal TTP - Derm Derm: Normal color, Warm and dry, No rash - Extremities Extremities: No deformity, No tenderness to palpate, Normal ROM s pain, No edema, No calf tenderness / cord - Neuro Neuro: Alert and oriented X 3, cognos developer 2-12 intact, No motor deficit, No sensory deficit, Normal speech - Psych Psych: Normal mood, Normal affect Results - Vitals Vitals: Vital Signs - 24 hr 10/25/19 10/25/19 04:30 05:10 Temperature 36.8 C 36.8 C Heart Rate 98 98 Respiratory 18 18 Rate Blood Pressure 129/78 129/78 O2 Saturation 100 100 Oxygen O2 Source Room air - Labs Labs: Laboratory Tests 10/25/19 10/25/19 10/25/19 04:41 05:00 05:00 WBC 12.3 H RBC 5.01 Hgb 15.3 Hct 45.5 MCV 90.8 MCH 30.5 MCHC 33.6 RDW 12.3 Plt Count 308 MPV 10.5 Neut # (Auto) 10.3 H Lymph # (Auto) 1.4 L [place] # (Auto) 0.6 Eos # (Auto) 0.0 Baso # (Auto) 0.1 Absolute Nucleated RBC 0.00 Nucleated RBC % 0.0 Sodium 139 Potassium 4.1 Chloride 103 Carbon Dioxide 25 Anion Gap 11.0 BUN 16 Creatinine 0.8 Estimated GFR (MDRD) 110 Glucose 158 H Lactic Acid Calcium 9.6 Total Bilirubin 0.4 AST 56 H ALT 127 H Alkaline Phosphatase 56 Total Protein 8.1 Albumin 4.7 Globulin 3.4 Albumin/Globulin Ratio 1.4 Lipase 28 Urine Color YELLOW Urine Clarity CLEAR Urine pH 6.5 Ur Specific [place] 1.025 Urine Protein NEGATIVE Urine Glucose (UA) NEGATIVE Urine Ketones NEGATIVE Urine Occult Blood NEGATIVE Urine Nitrite NEGATIVE Urine Bilirubin NEGATIVE Urine Urobilinogen 0.2 (NORMAL) Ur Leukocyte Esterase NEGATIVE Ur Microscopic Review NOT INDICATED Urine Culture Comments NOT INDICATED 10/25/19 05:00 WBC RBC Hgb Hct MCV MCH MCHC RDW Plt Count MPV Neut # (Auto) Lymph # (Auto) [place] # (Auto) Eos # (Auto) Baso # (Auto) Absolute Nucleated RBC Nucleated RBC % Sodium Potassium Chloride Carbon Dioxide Anion Gap BUN Creatinine Estimated GFR (MDRD) Glucose Lactic Acid 2.4 H Calcium Total Bilirubin AST ALT Alkaline Phosphatase Total Protein Albumin Globulin Albumin/Globulin Ratio Lipase Urine Color Urine Clarity Urine pH Ur Specific [place] Urine Protein Urine Glucose (UA) Urine Ketones Urine Occult Blood Urine Nitrite Urine Bilirubin Urine Urobilinogen Ur Leukocyte Esterase Ur Microscopic Review Urine Culture Comments PD MEDICAL DECISION MAKING - ED course Complexity details: reviewed old records, reviewed results, re-evaluated patient, considered differential (Cholecystitis, cholelithiasis, biliary colic, pancreatitis.), d/w patient, d/w family, other (patient signed out at shift change to dr andres arita) Departure - Departure Clinical Impression: Cholelithiasis Qualifiers: Cholelithiasis location: other site Biliary obstruction: without biliary obstruction Qualified Code(s): K80.80 - Other cholelithiasis without obstruction Condition: Stable
[2019-10-25] MEDS ORDERED: ONDANSETRON 4 MG/2 ML VIAL IVP STA ×2 (04:44→08:46)
[2019-10-25] MEDS ORDERED: SODIUM CHLORIDE 0.9% 1,000 ML IV STA ×2 (04:44→05:52)
[2019-10-25] MEDS ORDERED: MORPHINE 2 MG/ML CARPUJECT IVP STA (04:44)
[2019-10-25 04:47] LABS: BILIRUBIN,URINE NEGATIVE (NEGATIVE); CLARITY,URINE CLEAR (CLEAR); GLUCOSE, URINE (UA) NEGATIVE (NEGATIVE); KETONES,URINE (UA) NEGATIVE (NEGATIVE); LEUKOCYTE ESTERASE, URINE NEGATIVE (NEGATIVE); NITRITE,URINE NEGATIVE (NEGATIVE); OCCULT BLOOD,URINE NEGATIVE (NEGATIVE); PH,URINE 6.5 PH (5.0-7.5); PROTEIN,URINE NEGATIVE (NEGATIVE); UROBILINOGEN,URINE 0.2 (NORMAL) E.U./dL (NORMAL)
[2019-10-25 05:09] LABS: BASOPHILS # (AUTO) 0.1 10^3/uL (0.0-0.1); BASOPHILS % (AUTO) 0.6 %; EOSINOPHILS % (AUTO) 0.2 %; HGB - HEMOGLOBIN 15.3 g/dL (14.0-18.0); LYMPHOCYTES # (AUTO) 1.4 10^3/uL (1.5-3.5); LYMPHOCYTES % (AUTO) 11.1 %; MEAN CORPUSCULAR HEMOGLOBIN 30.5 pg (27.0-31.0); MEAN CORPUSCULAR HGB CONC 33.6 g/dL (32.0-36.0); MEAN CORPUSCULAR VOLUME 90.8 fL (80.0-94.0); MEAN PLATELET VOLUME 10.5 fL (7.4-11.4); MONOCYTES # (AUTO) 0.6 10^3/uL (0.0-1.0); MONOCYTES % (AUTO) 4.6 %; NEUTROPHILS # (AUTO) 10.3 10^3/uL (1.5-6.6); NEUTROPHILS % (AUTO) 83.1 %; PLT - PLATELET COUNT 308 10^3/uL (130-450); RED BLOOD COUNT 5.01 10^6/uL (4.70-6.10); RED CELL DISTRIBUTION WIDTH 12.3 % (12.0-15.0); WHITE BLOOD COUNT 12.3 x10^3/uL (4.8-10.8)
[2019-10-25] MEDS ORDERED: HYDROmorphone 0.5 MG/0.5 ML SYRINGE IVP STA (05:20)
[2019-10-25 05:22] LABS: ALBUMIN 4.7 g/dL (3.2-5.5); ALBUMIN/GLOBULIN RATIO 1.4 (1.0-2.2); BILIRUBIN,TOTAL 0.4 mg/dL (0.2-1.0); CALCIUM 9.6 mg/dL (8.5-10.3); CREATININE 0.8 mg/dL (0.6-1.2); TOTAL PROTEIN 8.1 g/dL (6.7-8.2)
[2019-10-25] MEDS ORDERED: IOVERSOL 320 100 ML VIAL IVP ONE ×2 (06:55→07:07)
[2019-10-25] MEDS ORDERED: HYDROmorphone 1 MG/ML CARPUJECT IVP STA (07:21)
--- NOTE | 2019-10-25 07:47 | Ultrasound Report ---
PROCEDURE: Abdomen Limited INDICATIONS: RUQ abd pain TECHNIQUE: Real-time focused scanning was performed of the abdomen, with image documentation. COMPARISON: 01/24/2018 FINDINGS: The gallbladder was difficult to visualize secondary to the patient's intolerance to scann ing and lack of good acoustic window. There are small stones layering dependently and also layering i n the gallbladder neck. These gradually move with change in patient position. The wall is borderline thickened ranging from 2.6 to 3.6 mm. There is a positive sonographic Ames sign. No definite perich olecystic fluid. The common duct is difficult to visualize and measures about 6 to 7 mm. The liver is mildly enlarged measuring 20.7 cm in length and is diffusely hyperechoic. No definite in trahepatic biliary dilatation. The pancreas was not seen. The right kidney is normal in morphology an d measures about 10.7 cm in length. A cyst arises in the mid pole region and measures 1.6 cm. IMPRESSION: 1. Cholelithiasis without convincing signs of acute cholecystitis. 2. Hepatomegaly and hepatic steatosis . 3. Nonvisualization of the pancreas. 4. Small right renal cyst. 5. Concordant with preliminary report. Reviewed by: Danielle Gottlieb MD on 10/25/2019 7:45 AM PDT Approved by: Danielle Gottlieb MD on 10/25/2019 7:45 AM PDT Station ID: [id number]
--- NOTE | 2019-10-25 07:51 | CT Report ---
PROCEDURE: Abdomen/Pelvis W INDICATIONS: abd pain CONTRAST: IV CONTRAST: Optiray 320 ml: 100 PO CONTRAST: *NO PO CONTRAST TECHNIQUE: After the administration of 100 cc Optiray 320 IV contrast, 5 mm thick sections acquired from the zana phragms to the symphysis. 5 mm thick coronal and sagittal reformats were acquired. For radiation do se reduction, the following was used: automated exposure control, adjustment of mA and/or kV accordi ng to patient size. COMPARISON: 07/10/2018 FINDINGS: Image quality: Excellent. ABDOMEN: Lung bases: Scattered groundglass opacities at both lung bases, left worse than right.. Heart size i s normal. Solid organs: Liver is mildly enlarged and demonstrates moderate diffuse hypodensity. Relative hyper density seen in the gallbladder fossa consistent with focal fat sparing. The gallbladder contains a t race amount of hyperdense material layering dependently. No significant pericholecystic inflammation. The spleen is normal size. Normal size adrenal glands, pancreas, and kidneys. There is a small parap elvic cyst in the right kidney. Possible punctate nonobstructing right lower pole intrarenal calcific ation. Peritoneum and bowel: Bowel loops demonstrate normal wall thickness and caliber. Normal appendix. N o free fluid or air. Nodes and vessels: No retroperitoneal or mesenteric adenopathy by size criteria. Aorta and inferior vena cava are normal in size. Miscellaneous: No ventral hernias. PELVIS: Genitourinary: Bladder wall thickness is normal. Miscellaneous: No inguinal hernias or adenopathy. Bones: No suspicious bony lesions. No vertebral body compression fractures. IMPRESSION: 1. Patchy groundglass opacities at both lung bases suggests atelectasis or pneumonitis. 2. Moderate hepatic steatosis, new since the prior study. 3. Trace cholelithiasis without CT evidence of acute cholecystitis, similar to CT scan. 4. Punctate nonobstructing right lower pole intrarenal calculus, similar compared to the prior study. 5. Concordant with preliminary report. Reviewed by: Danielle Gottlieb MD on 10/25/2019 7:50 AM PDT Approved by: Danielle Gottlieb MD on 10/25/2019 7:50 AM PDT Station ID: [id number]
[2019-10-25] MEDS ORDERED: DOCUSATE SODIUM 100 MG CAPSULE PO STA (08:03)
[2019-10-25] MEDS ORDERED: KETOROLAC 30 MG/ML VIAL IVP STA (08:03)
[2019-10-25] MEDS ORDERED: FAMOTIDINE 20 MG/2 ML SYRINGE IVP STA (08:03)
--- NOTE | 2019-10-25 08:39 | ED Physician Documentation ---
ED Addendum - Addendum Addendum: 10/25/19 08:36 The patient is spout tender in the upper abdomen and a little bit diffusely. He states he had been constipated and having some easy satiety for a few days. He had taken stool softener laxative shortly prior to the onset of the pain. Unclear whether he is having intestinal pain and distention versus biliary colic. No signs of acute cholecystitis and on CT scan no bowel obstruction or other focal abnormality to account for the pain. He is advised to have liquids only today and use some stool softener and drink lots of fluids. Avoid laxative. Consider anti-inflammatory such as naproxen or ibuprofen and add pain medicine if needed. To return if worsening pain despite meds or consistent pain more than a day, or fever vomiting bloody stool or other concerns Disposition discharged home stable Diagnoses upper abdominal pain #2 gallstones without cholecystitis #3 abdominal bloating
[2019-10-25 09:13] VITALS: BP 145/100
== END 2019-10-25 09:13 | disposition home or self-care (01) ==
LOC: ED 04:29
DX: K80.80 Other cholelithiasis without obstruction (principal); E03.9 Hypothyroidism, unspecified
CPT/HCPCS: 36415; 74177; 76705; 80053; 81003; 83605; 83690; 85025; 96374; 96375; 96376; 99283; 99285; A9270; J1170; Q9967; 81001; 87086

== ENCOUNTER 2019-11-04 10:42 | Outpatient (CLI) | payer MEDICAID ==
[2019-11-04 15:58] LABS: BUN - BLOOD UREA NITROGEN 12 mg/dL (6-20); CALCIUM 9.3 mg/dL (8.5-10.3); CARBON DIOXIDE - CO2 24 mmol/L (21-32); CHLORIDE 105 mmol/L (101-111); CHOL/HDL RATIO 3.9 (<5.0); CHOLESTEROL 148 mg/dL; CREATININE 0.9 mg/dL (0.6-1.2); GLUCOSE 115 mg/dL (70-100); HDL CHOLESTEROL 38 mg/dL; LDL CHOLESTEROL,CALCULATED 84 mg/dL; LDL/HDL RATIO 2.2 (<3.6); SODIUM 139 mmol/L (135-145); VLDL CHOLESTEROL 26 mg/dL
[2019-11-04 18:51] LABS: HEMOGLOBIN A1c% 6.4 % (4.27-6.07)
== END 2019-11-04 10:43 | disposition home or self-care (01) ==
LOC: LAB.S 10:42
PROVIDERS: ATTEND Physician Assistant
DX: E03.9 Hypothyroidism, unspecified (principal); Z79.899 Other long term (current) drug therapy; Z82.49 Family history of ischemic heart disease and other diseases of the circulatory system; R07.89 Other chest pain; E66.01 Morbid (severe) obesity due to excess calories; F32.9 Major depressive disorder, single episode, unspecified; F41.9 Anxiety disorder, unspecified
CPT/HCPCS: 36415; 80048; 80061; 82306; 83036; 83721; 84443

== ENCOUNTER 2020-10-04 15:59 | Outpatient (CLI) | payer MEDICAID ==
[2020-10-04 19:57] LABS: BASOPHILS # (AUTO) 0.1 10^3/uL (0.0-0.1); BASOPHILS % (AUTO) 0.9 %; EOSINOPHILS # (AUTO) 0.2 10^3/uL (0.0-0.7); EOSINOPHILS % (AUTO) 2.5 %; HCT - HEMATOCRIT 45.3 % (42.0-52.0); HGB - HEMOGLOBIN 15.1 g/dL (14.0-18.0); LYMPHOCYTES # (AUTO) 1.9 10^3/uL (1.5-3.5); LYMPHOCYTES % (AUTO) 25.2 %; MEAN CORPUSCULAR HEMOGLOBIN 30.2 pg (27.0-31.0); MEAN CORPUSCULAR HGB CONC 33.3 g/dL (32.0-36.0); MEAN CORPUSCULAR VOLUME 90.6 fL (80.0-94.0); MEAN PLATELET VOLUME 10.4 fL (7.4-11.4); MONOCYTES # (AUTO) 0.5 10^3/uL (0.0-1.0); MONOCYTES % (AUTO) 6.9 %; NEUTROPHILS # (AUTO) 4.9 10^3/uL (1.5-6.6); NEUTROPHILS % (AUTO) 64.1 %; PLT - PLATELET COUNT 388 10^3/uL (130-450); RED CELL DISTRIBUTION WIDTH 12.4 % (12.0-15.0); WHITE BLOOD COUNT 7.7 x10^3/uL (4.8-10.8)
[2020-10-04 20:14] LABS: ESTIMATED AVERAGE GLUCOSE 126 mg/dL (70-100)
[2020-10-04 20:16] LABS: ALBUMIN 4.2 g/dL (3.2-5.5); ALBUMIN/GLOBULIN RATIO 1.2 (1.0-2.2); ALKALINE PHOSPHATASE 60 IU/L (42-121); ALT ALANINE AMINOTRANSFERASE 61 IU/L (10-60); AST ASPARTATE AMINOTRANSFERASE 33 IU/L (10-42); BILIRUBIN,TOTAL 0.7 mg/dL (0.2-1.0); BUN - BLOOD UREA NITROGEN 14 mg/dL (6-20); CALCIUM 9.1 mg/dL (8.5-10.3); CARBON DIOXIDE - CO2 26 mmol/L (21-32); CHLORIDE 104 mmol/L (101-111); CHOL/HDL RATIO 4.6 (<5.0); CHOLESTEROL 180 mg/dL; CREATININE 0.8 mg/dL (0.6-1.2); GFR - MDRD 109 (>89); GLUCOSE 114 mg/dL (70-100); HDL CHOLESTEROL 39 mg/dL; LDL CHOLESTEROL,CALCULATED 117 mg/dL; POTASSIUM 3.8 mmol/L (3.5-5.0); SODIUM 139 mmol/L (135-145); TOTAL PROTEIN 7.6 g/dL (6.7-8.2); TRIGLYCERIDES 122 mg/dL; VLDL CHOLESTEROL 24 mg/dL
[2020-10-04 20:25] LABS: THYROID STIMULATING HORMONE 3.89 uIU/mL (0.34-5.60)
== END 2020-10-04 16:00 | disposition home or self-care (01) ==
LOC: LAB.S 15:59
PROVIDERS: ATTEND Physician Assistant
DX: E03.9 Hypothyroidism, unspecified (principal); Z79.899 Other long term (current) drug therapy; G47.20 Circadian rhythm sleep disorder, unspecified type; R94.31 Abnormal electrocardiogram [ECG] [EKG]; Z87.820 Personal history of traumatic brain injury; F43.10 Post-traumatic stress disorder, unspecified; E66.01 Morbid (severe) obesity due to excess calories; R73.03 Prediabetes
CPT/HCPCS: 36415; 80053; 80061; 83036; 83721; 84443; 85025

== ENCOUNTER 2022-11-01 07:46 | Outpatient (CLI) | payer MEDICAID ==
[2022-11-01 14:32] LABS: BASOPHILS # (AUTO) 0.1 10^3/uL (0.0-0.1); BASOPHILS % (AUTO) 1.1 %; EOSINOPHILS # (AUTO) 0.2 10^3/uL (0.0-0.7); EOSINOPHILS % (AUTO) 2.7 %; HCT - HEMATOCRIT 41.9 % (42.0-52.0); HGB - HEMOGLOBIN 13.7 g/dL (14.0-18.0); LYMPHOCYTES # (AUTO) 2.7 10^3/uL (1.5-3.5); LYMPHOCYTES % (AUTO) 33.3 %; MEAN CORPUSCULAR HEMOGLOBIN 30.4 pg (27.0-31.0); MEAN CORPUSCULAR HGB CONC 32.7 g/dL (32.0-36.0); MEAN CORPUSCULAR VOLUME 92.9 fL (80.0-94.0); MEAN PLATELET VOLUME 10.6 fL (7.4-11.4); MONOCYTES # (AUTO) 0.6 10^3/uL (0.0-1.0); MONOCYTES % (AUTO) 7.1 %; NEUTROPHILS # (AUTO) 4.5 10^3/uL (1.5-6.6); NEUTROPHILS % (AUTO) 55.6 %; PLT - PLATELET COUNT 372 10^3/uL (130-450); RED BLOOD COUNT 4.51 10^6/uL (4.70-6.10); RED CELL DISTRIBUTION WIDTH 12.4 % (12.0-15.0); WHITE BLOOD COUNT 8.2 x10^3/uL (4.8-10.8)
[2022-11-01 14:59] LABS: THYROID STIMULATING HORMONE 2.18 uIU/mL (0.34-5.60)
[2022-11-01 15:04] LABS: ESTIMATED AVERAGE GLUCOSE 117 mg/dL (70-100); HEMOGLOBIN A1c% 5.7 % (4.27-6.07)
[2022-11-01 15:19] LABS: ALBUMIN 4.4 g/dL (3.2-5.5); ALBUMIN/GLOBULIN RATIO 1.6 (1.0-2.2); ALKALINE PHOSPHATASE 64 IU/L (42-121); ALT ALANINE AMINOTRANSFERASE 59 IU/L (10-60); AST ASPARTATE AMINOTRANSFERASE 28 IU/L (10-42); BILIRUBIN,TOTAL 0.3 mg/dL (0.2-1.0); BUN - BLOOD UREA NITROGEN 23 mg/dL (6-20); CALCIUM 9.3 mg/dL (8.5-10.3); CARBON DIOXIDE - CO2 25 mmol/L (21-32); CHLORIDE 107 mmol/L (101-111); CHOL/HDL RATIO 3.8 (<5.0); CHOLESTEROL 149 mg/dL; CREATININE 0.7 mg/dL (0.6-1.3); GFR - MDRD 126 (>89); GLUCOSE 115 mg/dL (74-104); HDL CHOLESTEROL 39 mg/dL; LDL CHOLESTEROL,CALCULATED 91 mg/dL; LDL/HDL RATIO 2.3 (<3.6); POTASSIUM 3.7 mmol/L (3.5-4.5); SODIUM 142 mmol/L (135-145); TOTAL PROTEIN 7.2 g/dL (6.4-8.9); TRIGLYCERIDES 97 mg/dL (48-352); VLDL CHOLESTEROL 19 mg/dL
== END 2022-11-01 07:47 | disposition home or self-care (01) ==
LOC: LAB.S 07:46
PROVIDERS: ATTEND Physician Assistant Medical
DX: R73.03 Prediabetes (principal); E29.1 Testicular hypofunction; E03.9 Hypothyroidism, unspecified
CPT/HCPCS: 36415; 80053; 80061; 83036; 83721; 84403; 84443; 85025

== ENCOUNTER 2022-11-15 08:57 | Outpatient (CLI) | payer MEDICAID ==
[2022-11-15 14:55] LABS: CALCIUM 9.5 mg/dL (8.5-10.3); CREATININE 0.7 mg/dL (0.6-1.3); POTASSIUM 4.1 mmol/L (3.5-4.5)
== END 2022-11-15 08:58 | disposition home or self-care (01) ==
LOC: LAB.S 08:57
PROVIDERS: ATTEND Physician Assistant Medical
DX: N17.9 Acute kidney failure, unspecified (principal)
CPT/HCPCS: 36415; 80048

== ENCOUNTER 2023-07-12 06:43 | Emergency (ER) | payer MEDICAID ==
--- NOTE | 2023-07-12 07:03 | ED Physician Documentation ---
PD HPI ABD PAIN - Stated complaint Stated Complaint: ABD PX - Chief complaint Chief Complaint: Abd Pain - History obtained from History obtained from: Patient - History of Present Illness Timing - onset: Yesterday (onset about 5-6 pm yesterday with intense stabbing pain for few hours and changed to consistent aching/cramping pain localized to RUQ. Increased significantly 2-3 hours ago.) Timing - duration: Hours Timing - details: Gradual onset, Still present Quality: Cramping, Aching, Pain Location: RUQ, Epigastric Radiation: Right shoulder, Upper back Improved by: Laying still Worsened by: Eating (pain much worse after eating small breakfast hour or so ago.), Moving, Breathing, Palpation Associated symptoms: Nausea, Vomiting. No: Fever, Hematemesis, Diarrhea, Melena Similar symptoms before: Diagnosis (similar episode about 3 years ago, Dx with biliary colic due to gallstones, and pain improved and opted not to consult surgery. Has not had abd pains in that area since, until last evening.) Review of Systems Constitutional: denies: Fever, Chills Nose: denies: Rhinorrhea / runny nose, Congestion Throat: denies: Sore throat Respiratory: denies: Cough GI: reports: Abdominal Pain, Nausea, Vomiting. denies: Constipation, Diarrhea PD PAST MEDICAL HISTORY - Past Medical History Past Medical History: Yes Respiratory: Asthma Endocrine/Autoimmune: HyPOthyroidism GI: Cholelithiasis, Other Psych: Depression Other Past Medical History: gallstones - Past Surgical History Past Surgical History: Yes Cardiovascular: Other HEENT: Other - Present Medications Home Medications: Ambulatory Orders Medication Instructions Recorded Confirmed Amitriptyline HCl 50 mg PO DAILY 07/12/23 07/12/23 Dicyclomine [Bentyl] 10 mg PO QID PRN #15 cap 07/12/23 HYDROcod/ACETAM 5/325 [[place] 5/325] 1 ea PO Q6H PRN #18 tablet 07/12/23 Methylphenidate [Ritalin] 5 mg PO BID PRN 07/12/23 07/12/23 Naproxen 375 mg PO TID PRN 07/12/23 07/12/23 Ondansetron Odt [Zofran] 4 mg TL Q6H PRN #10 tablet 07/12/23 Oxycodone HCl/Acetaminophen 5 mg PO Q4HR PRN 07/12/23 07/12/23 [Percocet 5-325 mg Tablet] Promethazine [Phenergan] 25 mg PO Q6H PRN #10 tab 07/12/23 lamoTRIgine [LaMICtal] 100 mg PO BID 07/12/23 07/12/23 - Allergies Allergies/Adverse Reactions: Allergies Allergy/AdvReac Type Severity Reaction Status Date / Time No Known Drug Allergies Allergy Verified 07/12/23 06:59 - Social History Does the pt smoke?: No Smoking Status: Never smoker Does the pt drink ETOH?: Yes Does the pt have substance abuse?: No - Immunizations Immunizations are current?: Yes - POLST Patient has POLST: No POLST Status: Full Code PD ED PE NORMAL - Vitals Vital signs reviewed: Yes - General General: Alert and oriented X 3, Well developed/nourished, Other (appears in considerable pain, and is quite tender to palpation RUQ. ) - HEENT HEENT: PERRL, EOMI (not icteric.) - Neck Neck: Supple, no meningeal sign, No adenopathy - Cardiac Cardiac: RRR, No murmur - Respiratory Respiratory: Clear bilaterally - Abdomen Abdomen: Normal bowel sounds, Soft, Non distended, No organomegaly, Other - Derm Derm: Normal color, Warm and dry - Extremities Extremities: No edema, No calf tenderness / cord - Neuro Neuro: Alert and oriented X 3, No motor deficit, No sensory deficit, Normal speech Results - Vitals Vitals: Vital Signs - 24 hr 07/12/23 07/12/23 07/12/23 06:50 08:43 10:00 Temperature 36.7 C Heart Rate 88 93 91 Respiratory 18 20 18 Rate Blood Pressure 131/100 H 132/88 H 125/81 H O2 Saturation 97 95 96 07/12/23 12:13 Temperature 36.7 C Heart Rate 88 Respiratory 15 Rate Blood Pressure 126/85 H O2 Saturation 95 Oxygen O2 Source Room air - Labs Labs: Laboratory Tests 07/12/23 07/12/23 07/12/23 07:58 07:58 09:20 WBC 11.5 H RBC 4.84 Hgb 14.5 Hct 43.5 MCV 89.9 MCH 30.0 MCHC 33.3 RDW 11.9 L Plt Count 332 MPV 9.9 Neut # (Auto) 8.2 H Lymph # (Auto) 2.3 Hickman # (Auto) 0.9 Eos # (Auto) 0.1 Baso # (Auto) 0.1 Absolute Nucleated RBC 0.00 Nucleated RBC % 0.0 Sodium 140 Potassium 3.7 Chloride 101 Carbon Dioxide 30 Anion Gap 9.0 BUN 15 Creatinine 0.7 Estimated GFR (MDRD) 126 Glucose 145 H Calcium 9.7 Magnesium 2.0 Total Bilirubin 0.4 AST 40 ALT 86 H Alkaline Phosphatase 79 Total Protein 7.5 Albumin 4.4 Globulin 3.1 Albumin/Globulin Ratio 1.4 Lipase 18 Urine Color YELLOW Urine Clarity CLEAR Urine pH 6.0 Ur Specific [place] 1.025 Urine Protein NEGATIVE Urine Glucose (UA) NEGATIVE Urine Ketones NEGATIVE Urine Occult Blood NEGATIVE Urine Nitrite NEGATIVE Urine Bilirubin NEGATIVE Urine Urobilinogen 0.2 (NORMAL) Ur Leukocyte Esterase NEGATIVE Ur Microscopic Review NOT INDICATED Urine Culture Comments NOT INDICATED - Rads (name of study) upper abd US Relevant Findings:: Prelim report reviewed (gall stones with some surrounding fluid, minimally thickened tolentino. tender during US.), EMP independent interpretation of test, Other (US tech) PD Medical Decision Making - ED course Complexity details: reviewed results (seems c/w gallstones and has increased with IF ), re-evaluated patient (pain moderately improved but still runner and crmaping pain. ), considered differential (seems likley GB attack. Known gallstones but no problems for past 3 years. Could also be intestinal, kick) ED course: the patient with mild cholecystitis with gallstones, wall thick borderline 3 mm, and fallstone surrounding fluid. Given IV fluids meds for nausee, pain, inflammation. Improved qite reasonably. He took sips of fluids. Pt praPt would much prefer to go home with prn meds. Departure - Departure Disposition: Home, Self Care Clinical Impression: Right upper quadrant abdominal pain Condition: Stable Record reviewed to determine appropriate education?: Yes Instructions: ED Gallbladder Infec Poss, ED Gallstone W Biliary Colic Follow-Up: Surgical Care [Provider Group] Prescriptions: Dicyclomine [Bentyl] 10 mg PO QID PRN #15 cap PRN Reason: Abdominal Pain HYDROcod/ACETAM 5/325 [[place] 5/325] 1 ea PO Q6H PRN #18 tablet PRN Reason: Pain Promethazine [Phenergan] 25 mg PO Q6H PRN #10 tab PRN Reason: Nausea / Vomiting Ondansetron Odt [Zofran] 4 mg TL Q6H PRN #10 tablet PRN Reason: Nausea / Vomiting Comments: Your ultrasound shows inflammation of the gallbladder with some edema/fluid around it and some mild thickening of the wall. The gallstones previously there however still there. No signs of blockage of the common bile duct. There is not any inflammation of the pancreas or liver. Presume this is a gallbladder spasm with some inflammation. This can persist with inflammation and sometimes lead to infection. Often enough it will quiet down with clear liquid diet and not stimulating the gallbladder along with nausea and pain medicine. I sent prescriptions for Zofran antiemetic, dicyclomine antispasmodic, hydrocodone pain medicines to use [facility] [place]. Liquids only for today and still into tomorrow if it is not completely resolved. Use the medications as needed. Tylenol every 4-6 hours if needed for milder pains. Return to the ER if worsened symptoms again despite the medications. Follow-up with your primary or back to the ER if not fully resolved in the next 2 to 3 days. It would make sense to follow-up with general surgery regarding a conversation about gallbladder and the indications for surgery. If your symptoms resolve and do not come back over the next few days then return to your normal diet and intake but I would avoid particularly fatty foods as that will cause stimulation of the gallbladder to contract more forcefully. I am prescribing a short course of narcotic pain medication for you. These are potentially dangerous and addictive medications that should be used carefully. These medications may constipate you. Take an [id number] stool softener such as docusate twice daily with plenty of water while taking these medications. If you go 24 hours without a bowel movement, take [id number] MiraLAX, per package instructions. Do not drink or drive while taking these medications. If you received narcotic or sedating medications while in the emergency department do not drive for 24 hours. Store this medication in a safe, secure place and out of reach of children. It is a violation of federal law to give or sell this medication to another person or to use in a manner other than prescribed. The ED will not refill narcotic prescriptions, including prescriptions lost or stolen. You can dispose of unwanted medications at the Cytologist's office or at several pharmacies such as [facility]. Forms: PCP List Discharge Date/Time: 07/12/23 12:14
[2023-07-12 08:04] LABS: BASOPHILS # (AUTO) 0.1 10^3/uL (0.0-0.1); BASOPHILS % (AUTO) 0.7 %; EOSINOPHILS # (AUTO) 0.1 10^3/uL (0.0-0.7); EOSINOPHILS % (AUTO) 0.7 %; HCT - HEMATOCRIT 43.5 % (42.0-52.0); HGB - HEMOGLOBIN 14.5 g/dL (14.0-18.0); LYMPHOCYTES # (AUTO) 2.3 10^3/uL (1.5-3.5); LYMPHOCYTES % (AUTO) 19.7 %; MEAN CORPUSCULAR HGB CONC 33.3 g/dL (32.0-36.0); MEAN CORPUSCULAR VOLUME 89.9 fL (80.0-94.0); MEAN PLATELET VOLUME 9.9 fL (7.4-11.4); MONOCYTES # (AUTO) 0.9 10^3/uL (0.0-1.0); MONOCYTES % (AUTO) 7.7 %; NEUTROPHILS # (AUTO) 8.2 10^3/uL (1.5-6.6); NEUTROPHILS % (AUTO) 70.9 %; PLT - PLATELET COUNT 332 10^3/uL (130-450); RED BLOOD COUNT 4.84 10^6/uL (4.70-6.10); RED CELL DISTRIBUTION WIDTH 11.9 % (12.0-15.0); WHITE BLOOD COUNT 11.5 x10^3/uL (4.8-10.8)
[2023-07-12] MEDS: ONDANSETRON 4 MG/2 ML VIAL IVP STA (08:14)
[2023-07-12] MEDS: KETOROLAC 15 MG/ML VIAL IVP STA (08:15)
[2023-07-12] MEDS: HYDROmorphone 1 MG/ML CARPUJECT IVP STA ×3 (08:15→12:12)
[2023-07-12] MEDS: SODIUM CHLORIDE 0.9% 1,000 ML IV STA (08:16)
[2023-07-12 08:24] LABS: ALBUMIN 4.4 g/dL (3.2-5.5); ALBUMIN/GLOBULIN RATIO 1.4 (1.0-2.2); BILIRUBIN,TOTAL 0.4 mg/dL (0.2-1.0); CALCIUM 9.7 mg/dL (8.5-10.3); CREATININE 0.7 mg/dL (0.6-1.3); POTASSIUM 3.7 mmol/L (3.5-4.5); TOTAL PROTEIN 7.5 g/dL (6.4-8.9)
[2023-07-12 09:30] LABS: BILIRUBIN,URINE NEGATIVE (NEGATIVE); GLUCOSE, URINE (UA) NEGATIVE (NEGATIVE); KETONES,URINE (UA) NEGATIVE (NEGATIVE); LEUKOCYTE ESTERASE, URINE NEGATIVE (NEGATIVE); NITRITE,URINE NEGATIVE (NEGATIVE); OCCULT BLOOD,URINE NEGATIVE (NEGATIVE); PROTEIN,URINE NEGATIVE (NEGATIVE); UROBILINOGEN,URINE 0.2 (NORMAL) E.U./dL (NORMAL)
[2023-07-12 09:32] LABS: CLARITY,URINE CLEAR (CLEAR)
--- NOTE | 2023-07-12 10:34 | Ultrasound Report ---
PROCEDURE: Abdomen Limited INDICATIONS: RUQ abd pain onset last evening, known gallstones TECHNIQUE: Real-time focused scanning was performed of the abdomen, with image documentation. COMPARISONS: 10/25/2019. FINDINGS: Liver: Increased liver echogenicity, commonly mild hepatic steatosis. Gallbladder: Multiple gallstones are present. Largest measures approximately 1.1 cm in size. Borderli ne wall thickening at 3 mm. Small amount of pericholecystic fluid. There is an abnormal/positive sono graphic Ames sign. Biliary ducts: Intrahepatic bile ducts are non-dilated. Extrahepatic bile duct is not well-visualiz ed secondary to overlying bowel gas. Pancreas: Not well visualized due to overlying bowel gas. Miscellaneous: No free abdominal fluid. IMPRESSION: Cholelithiasis with sonographic findings compatible with acute cholecystitis. Preliminary findings were relayed to the ordering physician by the seamless hosiery knitter at time of study compl etion at approximately 1008 hours. Reviewed by: Ilan Veliz MD on 07/12/2023 10:32 AM PDT Approved by: Ilan Veliz MD on 07/12/2023 10:32 AM PDT Station ID: [id number]
[2023-07-12] MEDS: MAG HYDROX/AL HYDROX/SIMETH 30 ML UDC PO STA (10:38)
[2023-07-12 12:15] VITALS: BP 126/85; O2SAT 95
== END 2023-07-12 12:14 | disposition home or self-care (01) ==
LOC: ED 06:43
DX: R10.11 Right upper quadrant pain (principal); J45.909 Unspecified asthma, uncomplicated; E03.9 Hypothyroidism, unspecified; Z79.899 Other long term (current) drug therapy
CPT/HCPCS: 36415; 76705; 80053; 81003; 83690; 83735; 85025; 96374; 96375; 96376; 99284; A9270; J1170; 81001; 87086